=== PATIENT | male | born 1960 | race Caucasian/White ===

== ENCOUNTER 2021-02-04 18:47 | Emergency (ER) | payer MEDICARE, OTHER ==
[2021-02-04 19:26] LABS: BASOPHIL 0.8 % (0-2); EOSINOPHIL 3.2 % (0-5); HCT 42.6 % (42.0-52.0); HGB 14.8 g/dl (13.2-18.0); LYMPHOCYTE 33.2 % (15-48); MCH 32.6 pg (25.0-31.0); MCHC 34.7 g/dL (32.0-36.0); MCV 93.8 fL (78.0-100.0); MONOCYTE 13.3 % (0-12); MPV 11.1 fL (6.0-9.5); NEUTROPHIL 49.3 % (41-80); NRBC 0; PLT 142 K/uL (150-400); RBC 4.54 M/uL (4.70-6.00); RDW 13.4 % (11.5-14.0); WBC 4.7 K/uL (4.0-10.5)
[2021-02-04 19:27] LABS: BILIRUBIN NEGATIVE (NEGATIVE); BLOOD NEGATIVE Ery/uL (NEGATIVE); CLARITY CLEAR (CLEAR); COLOR YELLOW (YELLOW); GLUCOSE (U) NORMAL (NORMAL); LEUKOCYTES NEGATIVE Leu/uL (NEGATIVE); NITRITE NEGATIVE (NEGATIVE); PROTEIN NEGATIVE (NEGATIVE); UROBILINOGEN 0.2 mg/dL (0.2-1.0)
[2021-02-04 19:46] LABS: ALBUMIN 3.6 g/dL (3.4-5.0); BILIRUBIN - TOTAL 0.4 mg/dL (0.2-1.0); BUN/CREAT RATIO (CALC) 12.5 RATIO; CREATININE 0.8 mg/dL (0.67-1.17); GLOBULIN (CALCULATION) 3.2 g/dL; POTASSIUM 3.6 mmol/L (3.5-5.1); TOTAL PROTEIN 6.8 g/dL (6.4-8.2)
[2021-02-04] MEDS ORDERED: IBUPROFEN800 MG PO (21:35)
== END 2021-02-04 21:45 | disposition home or self-care (01) ==
LOC: FER 18:47
PROVIDERS: Student in an Organized Health Care Education/Training Program
DX: R51.9 Headache, unspecified (principal); Z87.19 Personal history of other diseases of the digestive system; Z88.6 Allergy status to analgesic agent
CPT/HCPCS: 36415; 70450; 80053; 81003; 84145; 85025; J0780